=== PATIENT | male | born 1935 | race Caucasian/White ===

== ENCOUNTER 2018-12-11 16:30 | Observation (INO) | payer OTHER ==
[~2018-12-11] VITALS: Ht 175.3 cm; Wt 81.6 kg
--- NOTE | 2018-12-11 17:16 | NUR ---
PT DX LAST MONTH WITH SINUS INFECTION AND GIVEN ZPAK. TOOK ENTIRE COURSE OF AB AND CLAIMS AFTER HIS LAST PILL HE STARTED TO GET AN INTERNAL "BURNING" FEELING WITH PALPITATIONS. SAW URGENT CARE AND THEY TOLD HIM TO DRINK ALOT OF WATER AND IT WOULD EVENTUALLY GO AWAY. HERE TODAY BECAUSE S/S ARE STILL PRESENT INTERMITTENTLY. DENIES PAIN AND NO CHANGE IN SKIN THAT ARE VISIBLE. CLAIMS THE FEELING IS MAINLY ON HIS BACK AND HANDS. CONNECTED TO WOUND CARE PHYSICIAN AND HE 88 DR PRESTON AT BEDSIDE FOR EVAL
[2018-12-11 17:50] LABS: BASOPHIL % 0.4 % (0-2); PLATELET COUNT 212 x10^3mcL (130-400); RED CELL DISTRIBUTION WIDTH 12.9 % (11.5-14.5)
[2018-12-11 18:05] LABS: CALCIUM 8.7 mg/dL (8.5-10.1); CARBON DIOXIDE 31.8 mmol/L (21-32); CHLORIDE SERUM 104 mmol/L (98-107); CREATININE SERUM 1.1 mg/dL (0.7-1.3); GLUCOSE SERUM 117 mg/dL (74-106); POTASSIUM SERUM 4.3 mmol/L (3.5-5.1); SODIUM SERUM 140 mmol/L (136-145)
[2018-12-11 18:10] LABS: ALKALINE PHOSPHATASE 78 U/L (46-116); ALT/SGPT 26 U/L (16-63); AST/SGOT 23 U/L (15-37); BILIRUBIN TOTAL 0.4 mg/dL (0.20-1.00); MAGNESIUM 2.1 mg/dL (1.8-2.4); TOTAL PROTEIN, SERUM 6.5 g/dL (6.4-8.2)
[2018-12-11 18:12] LABS: ALBUMIN 3.3 g/dL (3.4-5.0)
[2018-12-11 18:21] LABS: FREE T4 1.04 ng/dL (0.76-1.46); FREE THYROXINE INDEX 2.6 ug/dL (1.4-4.5); T3 TOTAL 0.98 ng/mL; T4(THYROXINE) 6.4 ug/dL (4.7-13.3)
--- NOTE | 2018-12-11 18:53 | NUR ---
DR PRESTON AT BEDSIDE FOR REEVAL. PT DENIES ALL S/S AT THIS TIME
--- NOTE | 2018-12-11 19:18 | NUR ---
REPORT GIVEN TO RIP GARCIA
--- NOTE | 2018-12-11 20:51 | NUR ---
REPORT WAS GIVEN TO GIANNI. PATIENT TRANSPORTED TO ROOM 208B
--- NOTE | 2018-12-11 21:07 | NUR ---
RECEIVED PT FROM ED VIA [facility], CAME IN DUE TO PALPITATIONS. AAOX4. DENIES HEADACHE/DIZZINESS. ABLE TO FOLLOW COMMANDS. NO SOB NOTED, LUNG SOUNDS CTA. DENIES CHEST PAIN/PRESSURE, SR ON THE MONITOR. DENIES ABDOMINAL DISCOMFORT. VOIDS. IV SITE PATENT AND INTACT. SIDE RAILS UPX2. CALL LIGHT ON REACH. PT'S SON AND AT BEDSIDE. ENDORSED TO PRIMARY NURSE GIANNI FOR CONTINUITY OF CARE
[2018-12-11 21:21] VITALS: BP 154/64
[2018-12-11 21:28] VITALS: Ht 175.3 cm; Wt 81.6 kg
[2018-12-11 21:29] LABS: CHOLESTEROL/HDL RATIO 3.1
[2018-12-11] MEDS ORDERED: LOVASTATIN40 MG PO (21:33)
[2018-12-11] MEDS ORDERED: FLOMAX0.4 MG PO (21:33)
[2018-12-12 00:04] LABS: microscopic required? NO
[2018-12-12 00:28] LABS: UA SPECIFIC GRAVITY <=1.005 (1.005-1.035); urine erythrocyte NEGATIVE (NEGATIVE)
[2018-12-12 00:38] LABS: AMPHETAMINE QUAL UR NONE DETECTED (See below)
[2018-12-12 05:44] VITALS: BP 143/67
--- NOTE | 2018-12-12 06:21 | NUR ---
PT ASLEEP BUT EASILY AROUSABLE, SLEPT MOST OF NIGHT, SL TO LAC, NO C/O OF CHEST PAIN SINCE ADMITTED, ON SAFETY REPRESENTATIVE WITH SB, NO DISTRESS NOTED, WILL KEEP TO MONITOR.
[2018-12-12 06:44] LABS: CALCIUM 8.3 mg/dL (8.5-10.1); CARBON DIOXIDE 28.8 mmol/L (21-32); CHLORIDE SERUM 105 mmol/L (98-107); CREATININE SERUM 0.9 mg/dL (0.7-1.3); GLUCOSE SERUM 93 mg/dL (74-106); SODIUM SERUM 141 mmol/L (136-145)
[2018-12-12 06:51] LABS: BASOPHIL % 0.3 % (0-2); PLATELET COUNT 192 x10^3mcL (130-400); RED CELL DISTRIBUTION WIDTH 12.5 % (11.5-14.5)
--- NOTE | 2018-12-12 07:23 | NUR ---
RECEIVED HAND OFF REPORT FROM RADHA ARCHER. PATIENT SITTING UP IN BED AT THIS TIME ON ROOM AIR, NO DISTRESS REPORTED. TELE [address] ON PATIENT. OREIENTED TO CALL LIGHT SYSTEM WITH CALL LIGHT WITHIN REACH, BED IN LOWEST POSTION. WILL CONTINUE TO MONITOR
[2018-12-12 09:00] VITALS: BP 128/66
--- NOTE | 2018-12-12 09:30 | NUR ---
DR HIDALGO ROUNDED ON PATIENT WITH ADAMARIS CHARGE NURSE. AWAITING CONSULTATIOIN FROM DR REYES. RECEIVED CALL FROM DR REYES TO UPDATE ON PATIENT CONDITION. PATIENT STABLE AT THIS TIME NOT FEELING ANY CHEST PAIN. CT CHEST ORDER BY DR HIDALGO. TAKEN DOWN AT THIS TIME.
--- NOTE | 2018-12-12 10:10 | NUR ---
ADMINSITERED MEDICATIONS PER APR, PATIENT REFUSED STOOL SOFTENER STATING THAT HE DOES NOT THINK HE NEEDS IT AND WILL ASK LATER IF HE WANTS IT. CALL LIGHT WITHIN REACH
--- NOTE | 2018-12-12 11:12 | NUR ---
PATIENT FAMILY MEMBERS AT BEDSIDE. UPDATED ON PLAN OF CARE. WAITING ECHO AND CONSULT FROM DR REYES. PATIENT OUIT OF BED AMBULATING AT THIS TIME
--- NOTE | 2018-12-12 13:04 | NUR ---
ECHO IN PROGRESS
--- NOTE | 2018-12-12 14:18 | NUR ---
CALLED AND SPOKE TO AND MADE HIM AWARE THAT HAD CLEARED PT FOR DISCHARGE HOME ON CARDIAC STANDPOINT. AWARE & READ CT CHEST RESULT WILL AWAIT FOR 'S ORDER TO D/C HOME PT TODAY. OMEGA GARCIA ASSIGNED TO THIS PT MADE AWARE OF ABOVE.
[2018-12-12 14:22] VITALS: BP 128/66
--- NOTE | 2018-12-12 15:19 | NUR ---
PATIENT WAS CLEARED BY DR REYES AND DR HIDALGO ENTERED DISCHARGE ORDER. PATIENT READY FOR DISCHARGE. PROVIDED PATIENT WITH DISCHARGE INSTRUCTIONS AND EDUCATED ON HOSPITAL STAY. ADDRESSED QUESTIONS. REMOVED TELE 10 FROM PATIENT AND TAKEN TO ADARSH ROBERTS. REMOVED IV FROM PATIENT LEFT AC. CATH INTACT NO BLEEDING FROM SITE. PATIENT ESCORTED OFF UNIT BY ALONZO LI. ALL BELONGINGS WITH PATIENT
== END 2018-12-12 15:25 | disposition home or self-care (01) | DRG 311 ==
LOC: ED 16:30 → DU 20:06
PROVIDERS: Emergency Medicine; ADMIT Internal Medicine
DX: I24.9 Acute ischemic heart disease, unspecified (principal); I25.10 Atherosclerotic heart disease of native coronary artery without angina pectoris; F41.9 Anxiety disorder, unspecified; Z68.26 Body mass index [BMI] 26.0-26.9, adult
CPT/HCPCS: 84439; G0378; J7030; Q0092

== ENCOUNTER 2018-12-16 18:25 | Emergency (ER) | payer OTHER ==
[~2018-12-16] VITALS: Ht 177.8 cm; Wt 80.7 kg
[~2018-12-16 18:25] MED LIST: FLOMAX0.4 MG PO; LOVASTATIN40 MG PO
[2018-12-16 19:41] VITALS: Ht 177.8 cm; Wt 80.7 kg
[2018-12-16 21:18] LABS: BASOPHIL % 0.4 % (0-2); PLATELET COUNT 238 x10^3mcL (130-400); RED CELL DISTRIBUTION WIDTH 13.2 % (11.5-14.5)
[2018-12-16 21:58] LABS: CALCIUM 9.1 mg/dL (8.5-10.1); CARBON DIOXIDE 28.5 mmol/L (21-32); CHLORIDE SERUM 103 mmol/L (98-107); GLUCOSE SERUM 103 mg/dL (74-106); POTASSIUM SERUM 4.3 mmol/L (3.5-5.1); SODIUM SERUM 139 mmol/L (136-145)
[2018-12-16 22:01] LABS: T3 TOTAL 1.02 ng/mL
[2018-12-16 22:09] LABS: ALBUMIN 3.6 g/dL (3.4-5.0); ALKALINE PHOSPHATASE 81 U/L (46-116); ALT/SGPT 25 U/L (16-63); AST/SGOT 23 U/L (15-37); BILIRUBIN TOTAL 0.5 mg/dL (0.20-1.00); CHOLESTEROL 146 mg/dL (<200); HDL CHOLESTEROL 51 mg/dL (40-60); MAGNESIUM 2.2 mg/dL (1.8-2.4); PHOSPHOROUS 3.8 mg/dL (2.5-4.9)
[2018-12-16 22:18] LABS: FREE T4 1.27 ng/dL (0.76-1.46); FREE THYROXINE INDEX 3.7 ug/dL (1.4-4.5); T4(THYROXINE) 10.1 ug/dL (4.7-13.3)
[2018-12-16 23:16] LABS: microscopic required? YES; urine erythrocyte TRACE (NEGATIVE)
[2018-12-16 23:34] VITALS: BP 150/67
== END 2018-12-16 23:34 | disposition home or self-care (01) ==
LOC: ED 18:25
PROVIDERS: Emergency Medicine
DX: T50.905A Adverse effect of unspecified drugs, medicaments and biological substances, initial encounter (principal); Z88.0 Allergy status to penicillin; Z88.1 Allergy status to other antibiotic agents; R23.2 Flushing; G47.00 Insomnia, unspecified; Y92.89 Other specified places as the place of occurrence of the external cause
CPT/HCPCS: 36415; 84439; J7030